=== PATIENT | female | born 2005 | race Caucasian/White ===

== ENCOUNTER 2024-02-13 14:29 | Emergency (ER) | payer BC, SELFPAY ==
[2024-02-13 14:32] VITALS: BP 132/82
--- NOTE | 2024-02-13 14:56 | ED.GENMED ---
History of Present Illness
General
Chief Complaint: Rabies
Source: patient
Time Seen by Provider: 02/13/24 14:51
History of Present Illness
History of Present Illness:
18yoF presenting for her 2nd rabies vaccination. Patient was started on the rabies vaccine series on 02/10/24 after a bat was found in her dorm room. She denies any known bites. [place]. No
complaints at this time. She tolerated the first vaccine without issues.
Phy Exam
General Physical Exam
General Presentation: well appearing and no apparent distress
General age: appears stated age
General Skin: warm and dry
General Habitus: normal
ENT Exam
ENT Exam: normocephalic
Pulmonary Exam
Pulmonary Exam: no respiratory distress
Neurological Exam
Neurological Exam: alert
[place] Coma Scale
Eye Opening: Spontaneous
Verbal Response: Oriented
Motor Response: Obeys Commands
GCS Total Score: 15
Skin Exam
Skin Exam: normal color and warm/dry
Psychiatric Exam
Psychiatric Exam: normal mood/affect
Course
Orders/Labs/Results
Orders:
Orders
02/13/24 15:30
Rabies Vaccine ([facility])/Pf [Rabavert Rabies Vacc W-Diluent] 2.5 unit IM .ONCE ONE
Vital Signs
Initial and Last Documented VS:
Initial Vital Signs
Temp Pulse Resp BP Pulse Ox
98.3 F 90 16 132/82 100
02/13/24 14:32 02/13/24 14:32 02/13/24 14:32 02/13/24 14:32 02/13/24 14:32
Last Documented Vital Signs
Temp Pulse Resp BP Pulse Ox
98.3 F 90 16 132/82 100
02/13/24 14:32 02/13/24 14:32 02/13/24 14:32 02/13/24 14:32 02/13/24 14:32
MDM/Problems Addressed
Differential Diagnosis Includes:
18yoF here for her 2nd rabies vaccine. No complaints at this time. VSS. Vaccine ordered and administered by nursing staff. Prescriptions provided for the remaining 2 vaccines. She was advised to call the infusion center to schedule this. She was
discharged in stable condition.
*Critical Care Note
Total Time (30-74mins, 75-104mins- exclusive of procedures): Not Applicable
ED Attending Note
-
Portions of this chart may have been created with voice recognition software.� Occasional wrong word or��sound alike� substitutions may have occurred due to the inherent limitations of voice recognition software.
Discharge Plan
Departure
Patient Disposition: Home (Routine Discharge)
Date of Disposition: 02/13/24
Time of Disposition: 14:57
Patient with high blood pressure during this ER visit?: No
Discharge Problem:
Encounter for repeat administration of rabies vaccination
Instructions: Rabies Vaccine CDC Vaccine Information Statement (VIS)
Prescriptions:
New
rabies vacc,human diploid (PF) 2.5 unit recon soln
1 ml IM ONCE Qty: 2 0RF
Rx Instructions:
Administer vaccine IM on 02/17/24 and 02/24/24.
Stand Alone Forms: Rabies Vaccine Post Exp Dosing
Activity Restrictions/Additional Instructions:
Please call infusion center tomorrow to schedule your next 2 vaccines.
Interventions
Interventions:
*Risk Screen - Suicide Last Done: 02/13/24 14:32
*General Assessment Last Done: 02/13/24 14:32
*Neglect/Abuse Screening Last Done: 02/13/24 14:32
*Nursing Disposition Last Done: 02/13/24 15:38
Discharge Date and Time
Discharge Date/Time: 02/13/24 15:39
Print Language: GREENLANDIC
[2024-02-13] MEDS: RABAVERT RABIES VACC W-DILUENT 2.5 UNIT IM (15:29)
== END 2024-02-13 15:39 | disposition home or self-care (01) ==
LOC: EMR 14:29
PROVIDERS: EMERGENCY PHYSICIAN Student in an Organized Health Care Education/Training Program; FAMILY PHYSICIAN Pediatrics
DX: Z23 Encounter for immunization (principal); Z20.3 Contact with and (suspected) exposure to rabies
CPT/HCPCS: 99281; 90471; 90675

== ENCOUNTER 2024-02-24 10:04 | Outpatient (RCR) | payer BC, SELFPAY ==
[2024-02-17 14:45] VITALS: BP 131/74
[2024-02-17] MEDS: RABAVERT RABIES VACC W-DILUENT 2.5 UNIT IM (14:51)
[2024-02-24 10:10] VITALS: BP 127/86
[2024-02-24] MEDS: RABAVERT RABIES VACC W-DILUENT 2.5 UNIT IM (10:17)
== END 2024-02-25 09:53 | disposition home or self-care (01) ==
LOC: OID 10:04
PROVIDERS: ATTENDING PHYSICIAN Physician Assistant; FAMILY PHYSICIAN Pediatrics
DX: Z20.3 Contact with and (suspected) exposure to rabies (principal); Z23 Encounter for immunization
CPT/HCPCS: 90471; 90675